=== PATIENT | male | born 1960 | race Hispanic/Latino ===

== ENCOUNTER 2024-09-25 11:40 | Emergency (ER) | payer OTHER ==
[2024-09-25] MEDS ORDERED: KETOROLAC 30 MG/ML INJ ONE (13:10)
[2024-09-25] MEDS ORDERED: CYCLOBENZAPRINE 10 MG TAB ONE (13:10)
--- NOTE | 2024-09-25 13:12 | RAD REPORT ---
EXAMINATION: Shoulder Right 2+ Views CLINICAL INDICATION: Male, 64 years old. PAIN RIGHT COMPARISON: No prior exam. FINDINGS: No acute fracture. Right shoulder arthroplasty appears intact. No malalignment/dislocation. Widening at the right AC joint is likely postsurgical. Other: n/a IMPRESSION: No acute osseous abnormality.
--- NOTE | 2024-09-25 13:42 | ER ---
Nurse's Notes [facility] Name: Sukhjinder Traore Age: 64 yrs Sex: Male : 1960 Arrival Date: 09/25/2024 Time: 11:40 Bed 25 Private MD: Diagnosis: Right shoulder pain Presentation: 09/25 12:23 Chief complaint: Right shoulder pain x 5 days. Pain started after swinging right arm in hb a moapa multiple times. Coronavirus screen: At this time, the client does not indicate any symptoms associated with coronavirus-19. Ebola Screen: No symptoms or risks identified at this time. Initial Sepsis Screen: Does the patient meet any 2 criteria? No. Patient's initial sepsis screen is negative. Does the patient have a suspected source of infection? No. Patient's initial sepsis screen is negative. Risk Assessment: Do you want to hurt yourself or someone else? Patient reports no desire to harm self or others. Onset of symptoms was September 21, 2024. 12:23 Method Of Arrival: Ambulatory hb 12:23 Acuity: IVELISSE 4 hb Triage Assessment: 13:48 General: Appears in no apparent distress. Behavior is calm, cooperative, appropriate ap3 for age. Pain: Complains of pain in left arm. Historical: - Allergies: 12:24 No Known Allergies; hb - Home Meds: 12:24 amlodipine oral [Active]; losartan-hydrochlorothiazide oral [Active]; hb - PMHx: 12:24 Hypertension; hb - PSHx: 12:24 Right Shoulder Replacement; hb - Immunization history:: Adult Immunizations up to date. - Infectious Disease History:: Denies. - Social history:: Smoking status: Patient denies any tobacco usage or history of. - Family history:: not pertinent. Screenin:47 [facility] ED Fall Risk Assessment (Adult) History of falling in the last 3 months, ap3 including since admission No falls in past 3 months (0 pts) Confusion or Disorientation No (0 pts) Intoxicated or Sedated No (0 pts) Impaired Gait No (0 pts) Mobility Assist Device Used No (0 pt) Altered Elimination No (0 pt) Score/Fall Risk Level 0 - 2 = Low Risk Oriented to surroundings, Maintained a safe environment, Educated pt \T\ family on fall prevention, incl call for assistance when getting out of bed, Assessed \T\ reinforced patient's understanding of fall precautions, Hourly rounding (assess needs \T\ fall precautionary measures) done, Used ambulatory aids as needed (educated on \T\ assisted with), Used gait belt as appropriate. Abuse screen: Denies threats or abuse. Nutritional screening: No deficits noted. Tuberculosis screening: No symptoms or risk factors identified. Vital Signs: 12:23 BP 157 / 95; Pulse 63; Resp 16; Temp 98.1; Pulse Ox 97% ; Weight 133.81 kg; Height 5 hb ft. 10 in. ; Pain 7/10; 12:23 Body Mass Index 42.33 (133.81 kg, 177.8 cm) hb 12:23 Pain Scale: Adult hb ED Course: 11:47 Patient arrived in ED. mr 12:24 Triage completed. hb 12:25 Jed James MD is Attending Physician. rt 12:25 Arm band placed on. hb 13:06 Shoulder Right (2 View) XRAY In Process Unspecified. EDMS 13:48 Patient has correct armband on for positive identification. Provided Education on: ap3 discharge instructions . 13:48 No provider procedures requiring assistance completed. Patient did not have IV access ap3 during this emergency room visit. Administered Medications: 13:28 Drug: Ketorolac IM 30 mg IM once Route: IM; Site: left deltoid; ap3 13:47 Follow up: Response: No adverse reaction; Pain is decreased ap3 13:28 Drug: Cyclobenzaprine PO 10 mg PO once Route: PO; ap3 13:47 Follow up: Response: No adverse reaction; Pain is decreased ap3 Medication: 13:48 VIS not applicable for this client. ap3 Outcome: 13:41 Discharge ordered by . rt 13:48 Discharged to home ambulatory, with family, ap3 13:48 Condition: good 13:48 Discharge instructions given to patient, Instructed on discharge instructions, follow up and referral plans. medication usage, Demonstrated understanding of instructions, follow-up care, medications, Prescriptions given X 1, 13:48 Patient left the ED. ap3 Signatures: Dispatcher [employer] EDMI MarcosBebe, Mando Reg mr PerezterYaima, RN LAZARA hb Jeni Mackay RN RN ap3 Jed James MD MD rt
--- NOTE | 2024-09-25 13:42 | EDPHYS ---
Physician Documentation [facility] Name: Sukhjinder Traore Age: 64 yrs Sex: Male : 1960 Arrival Date: 09/25/2024 Time: 11:40 Bed 25 Private MD: ED Physician Jed James HPI: 09/25 15:47 This 64 yrs old Male presents to ER via Ambulatory with complaints of Shoulder rt Pain. 15:48 Patient presents to the ED with 5 days of shoulder pain. Patient states that he swung a rt bottle of approxitrying at the air out of it causing pain to his right shoulder. Pain is aching nature, nonradiating. He does have full range of motion. Denies other aggravating or alleviating factors.. Historical: - Allergies: 12:24 No Known Allergies; hb - Home Meds: 12:24 amlodipine oral [Active]; losartan-hydrochlorothiazide oral [Active]; hb - PMHx: 12:24 Hypertension; hb - PSHx: 12:24 Right Shoulder Replacement; hb - Immunization history:: Adult Immunizations up to date. - Infectious Disease History:: Denies. - Social history:: Smoking status: Patient denies any tobacco usage or history of. - Family history:: not pertinent. ROS: 15:48 Constitutional: Negative for fever, chills, and weight loss, Cardiovascular: Negative rt for chest pain, palpitations, and edema, Respiratory: Negative for shortness of breath, cough, wheezing, and pleuritic chest pain, Abdomen/GI: Negative for abdominal pain, nausea, vomiting, diarrhea, and constipation, Skin: Negative for injury, rash, and discoloration, Neuro: Negative for headache, weakness, numbness, tingling, and seizure, 15:48 MS/extremity: Positive for pain, Negative for decreased range of motion, Exam: 15:48 Constitutional: This is a well developed, well nourished patient who is awake, alert, rt and in no acute distress. Head/Face: Normocephalic, atraumatic. Chest/axilla: Normal chest wall appearance and motion. Nontender with no deformity. No lesions are appreciated. Cardiovascular: Regular rate and rhythm with a normal S1 and S2. No gallops, murmurs, or rubs. Normal PMI, no JVD. No pulse deficits. Respiratory: Lungs have equal breath sounds bilaterally, clear to auscultation and percussion. No rales, rhonchi or wheezes noted. No increased work of breathing, no retractions or nasal flaring. Abdomen/GI: Soft, non-tender, with normal bowel sounds. No distension or tympany. No guarding or rebound. No evidence of tenderness throughout. Skin: Warm, dry with normal turgor. Normal color with no rashes, no lesions, and no evidence of cellulitis. MS/ Extremity: Pulses equal, no cyanosis. Neurovascular intact. Full, normal range of motion. 15:48 Musculoskeletal/extremity: Tenderness over the right superior trapezius muscle, no focal tenderness over right shoulder, pulses, motor, sensation are intact. Vital Signs: 12:23 BP 157 / 95; Pulse 63; Resp 16; Temp 98.1; Pulse Ox 97% ; Weight 133.81 kg; Height 5 hb ft. 10 in. ; Pain 7/10; 12:23 Body Mass Index 42.33 (133.81 kg, 177.8 cm) hb 12:23 Pain Scale: Adult hb MDM: 12:28 Medical Screening Exam initiated rt 15:48 Differential diagnosis: Muscle spasm, fracture, dislocation. Data reviewed: vital rt signs, nurses notes, radiologic studies. I considered the following discharge prescriptions or medication management in the emergency department Medications were administered in the Emergency Department. See MAR. Independent interpretation of the following test(s) in the Emergency Department X-Ray: My interpretation is No fracture, dislocation seen on interpretation of x-ray images. Care significantly affected by the following chronic conditions: Hypertension. Counseling: I had a detailed discussion with the patient and/or guardian regarding the historical points, exam findings, and any diagnostic results supporting the discharge/admit diagnosis, radiology results, the need for outpatient follow up. Response to treatment: the patient's symptoms have markedly improved after treatment. 09/25 12:33 Order name: Shoulder Right (2 View) XRAY; Complete Time: 13:24 rt Administered Medications: 13:28 Drug: Ketorolac IM 30 mg IM once Route: IM; Site: left deltoid; ap3 13:47 Follow up: Response: No adverse reaction; Pain is decreased ap3 13:28 Drug: Cyclobenzaprine PO 10 mg PO once Route: PO; ap3 13:47 Follow up: Response: No adverse reaction; Pain is decreased ap3 Disposition Summary: 09/25/24 13:41 Discharge Ordered Notes: Location: Home rt Problem: new rt Symptoms: have improved rt Condition: Stable rt Diagnosis - Right shoulder pain rt Followup: rt - With: Private Physician - When: 2 - 3 days - Reason: Discharge Instructions: - Discharge Summary Sheet rt - Shoulder Pain rt Forms: - Medication Reconciliation Form rt - Antibiotic Education rt - Prescription Opioid Use rt - Patient Portal Instructions rt - Leadership Thank You Letter rt Prescriptions: - Cyclobenzaprine 10 mg Oral Tablet - take 1 tablet ORAL route every 8 hours As needed; 30 tablet; Refills: 0, rt Product Selection Permitted Signatures: Dispatcher [employer] EDYaima Burton RN RN hb Jeni Mackay RN RN ap3 Jed James MD MD rt Corrections: (The following items were deleted from the chart) 12:34 12:34 Shoulder Right 2 View+[email or web address] ordered. EDMS EDMS
[2024-09-25 15:41] VITALS: BP 157/95; TEMP 98.1; O2SAT 97
== END 2024-09-25 13:48 | disposition home or self-care (01) ==
LOC: ER 11:40
DX: M25.511 Pain in right shoulder (principal); Z96.611 Presence of right artificial shoulder joint; I10 Essential (primary) hypertension
CPT/HCPCS: 96372; 99284